=== PATIENT | female | born 1955 | race Caucasian/White ===

== ENCOUNTER 2019-08-05 14:22 | Inpatient (IN) | payer MEDICAID ==
[2019-08-04] MEDS: MAGNESIUM SULFATE/D5W 100 ML IV SCH (21:15)
[~2019-08-05] VITALS: Ht 167.6 cm; Wt 108.9 kg
--- NOTE | 2019-08-05 14:36 | NUR ---
[email or web address] evaluating patient, MSE in progress, pending MD orders
[2019-08-05 14:50] LABS: BASOPHILS # (AUTO) 0.1 K/uL (0.0-8.0); BASOPHILS % (AUTO) 1.1 % (0.0-2.0); EOSINOPHILS # (AUTO) 0.2 K/uL (0.0-0.7); EOSINOPHILS % (AUTO) 3.5 % (0.0-7.0); HEMOGLOBIN 13.7 g/dL (10.9-14.3); LYMPHOCYTES # (AUTO) 2.2 K/uL (20.0-40.0); LYMPHOCYTES % (AUTO) 32.6 % (20.5-51.5); MEAN CORPUSCULAR HEMOGLOBIN 28.5 uug (24.7-32.8); MEAN CORPUSCULAR HGB CONC 33 g/dL (32.3-35.6); MEAN CORPUSCULAR VOLUME 87.4 fL (75.5-95.3); MONOCYTES # (AUTO) 0.4 K/uL (2.0-10.0); MONOCYTES % (AUTO) 5.9 % (0.0-11.0); NEUTROPHILS # (AUTO) 3.8 K/uL (1.8-8.9); NEUTROPHILS % (AUTO) 56.9 % (38.5-71.5); PLATELET COUNT (AUTO) 205 K/uL (179-408); WHITE BLOOD COUNT (AUTO) 6.7 K/uL (3.8-11.8)
[2019-08-05 14:57] LABS: POTASSIUM 3.5 mmol/L (3.5-5.1)
[2019-08-05 15:10] LABS: BILIRUBIN,DIRECT 0.2 mg/dL (0.0-0.2); BILIRUBIN,TOTAL 0.8 mg/dL (0.2-1.0); TOTAL PROTEIN, SERUM 6.8 g/dL (6.4-8.2)
[2019-08-05] MEDS ORDERED: FUROSEMIDE 40 MG/4 ML VIAL IV ONE (16:15)
[2019-08-05] MEDS ORDERED: NITROGLYCERIN OINT 1 GM PACKET TP ONE (16:15)
[2019-08-05] MEDS ORDERED: ENALAPRILAT DIHYDRATE 1.25 MG/1 ML VIAL IV ONE (16:15)
[2019-08-05] MEDS ORDERED: ASPIRIN 325 MG TABLET PO ONE (16:15)
[2019-08-05] MEDS ORDERED: IV NORMAL SALINE 250 ML IV ONE (16:41)
[2019-08-05] MEDS ORDERED: IOHEXOL 350 100 ML INFUS..BTL ONE (16:41)
[2019-08-05] MEDS ORDERED: SWABABLE VALVE TRANSFER SET EA MC ONE (16:41)
--- NOTE | 2019-08-05 16:41 | NUR ---
Patient is resting comfortably on gurney, pending admitting papers from ER registartion staff Damir and Prem. PATIENT IS PAIN FREE AT THIS TIME.
[2019-08-05] MEDS ORDERED: MAGNESIUM HYDROXIDE 30 ML LIQUID UDC PO PRN (18:00)
[2019-08-05] MEDS ORDERED: ACETAMINOPHEN 325 MG TABLET PO PRN (18:00)
[2019-08-05] MEDS ORDERED: TEMAZEPAM 15 MG CAPSULE PO PRN (18:00)
[2019-08-05] MEDS ORDERED: ONDANSETRON 4 MG/2 ML VIAL IV PRN (18:00)
[2019-08-05] MEDS ORDERED: MORPHINE SULFATE 2 MG/1 ML DISP.SYRIN IV PRN (18:00)
[2019-08-05] MEDS ORDERED: hydrALAZINE HCL 25 MG TABLET PO PRN (18:15)
[2019-08-05] MEDS ORDERED: DEXTROSE 50% 50 ML DISP.SYRIN IV PRN (18:15)
[2019-08-05 18:25] VITALS: BP 134/80
--- NOTE | 2019-08-05 18:38 | NUR ---
Discussed importance to patient preventing to drink too much water secondary to pt is being given diuretics. Pt agreeable with plan of care. Call light is within reach.
--- NOTE | 2019-08-05 18:42 | NUR ---
PT has multiple pvcs on tele with SNR. Put pt on o2 at 2 liters. Pt ambulatory with good balance. VSS.
[2019-08-05] MEDS ORDERED: POTASSIUM CHLORIDE 20 MEQ POWDER PACKET PO ONE (19:15)
[2019-08-05 20:00] VITALS: BP 127/81
[2019-08-05] MEDS: MAGNESIUM SULFATE/D5W 100 ML IV SCH ×2 (20:14→21:15)
[2019-08-05] MEDS: CARVEDILOL 6.25 MG TABLET PO SCH (20:15)
[2019-08-05] MEDS: FUROSEMIDE 20 MG/2 ML VIAL IV SCH (20:16)
[2019-08-05] MEDS: LOSARTAN POTASSIUM 50 MG TABLET PO SCH (20:16)
[2019-08-05] MEDS: ATORVASTATIN 40 MG TABLET PO SCH (20:23)
[2019-08-05] MEDS: DOCUSATE SODIUM 100 MG CAPSULE PO SCH (20:23)
[2019-08-05] MEDS: ENOXAPARIN SODIUM 40 MG/0.4 ML DISP.SYRIN SQ SCH (20:27)
[2019-08-06] VITALS: BP 107/59
[2019-08-06 05:00] VITALS: BP 112/64
--- NOTE | 2019-08-06 06:00 | NUR ---
Pt rested well in between care; no acute distress; needs attended;
[2019-08-06 06:10] LABS: BASOPHILS % (AUTO) 0.8 % (0.0-2.0); EOSINOPHILS # (AUTO) 0.3 K/uL (0.0-0.7); EOSINOPHILS % (AUTO) 4.1 % (0.0-7.0); HEMATOCRIT 42.8 % (31.2-41.9); HEMOGLOBIN 13.9 g/dL (10.9-14.3); LYMPHOCYTES # (AUTO) 1.6 K/uL (20.0-40.0); LYMPHOCYTES % (AUTO) 24.2 % (20.5-51.5); MEAN CORPUSCULAR HEMOGLOBIN 28.5 uug (24.7-32.8); MEAN CORPUSCULAR HGB CONC 33 g/dL (32.3-35.6); MEAN CORPUSCULAR VOLUME 87.8 fL (75.5-95.3); MONOCYTES # (AUTO) 0.5 K/uL (2.0-10.0); MONOCYTES % (AUTO) 6.9 % (0.0-11.0); NEUTROPHILS # (AUTO) 4.2 K/uL (1.8-8.9); PLATELET COUNT (AUTO) 209 K/uL (179-408); RED BLOOD CELL COUNT(AUTO) 4.88 MIL/uL (3.63-4.92); WHITE BLOOD COUNT (AUTO) 6.6 K/uL (3.8-11.8)
[2019-08-06 06:22] LABS: BILIRUBIN,TOTAL 1.1 mg/dL (0.2-1.0); MAGNESIUM 2.2 mg/dL (1.8-2.4); PHOSPHOROUS 3.4 mg/dL (2.5-4.9); POTASSIUM 3.4 mmol/L (3.5-5.1); TOTAL PROTEIN, SERUM 6.9 g/dL (6.4-8.2)
[2019-08-06 06:28] LABS: THYROID STIMULATING HORMONE 0.899 mIU/mL (0.358-3.740)
[2019-08-06] MEDS: PANTOPRAZOLE SODIUM 40 MG TABLET.DR PO SCH (06:53)
[2019-08-06] MEDS: BLOOD SUGAR DIAGNOSTIC 1 EACH STRIP VI SCH ×4 (06:54→20:50)
--- NOTE | 2019-08-06 07:30 | NUR ---
Patient received in bed. Patient is AOx4. Patient denies any SOB or respiratory distress. Patient denies pain. Patient has R. AC #22 patent and intact. Safety measures in place. Will continue with the plan of care.
[2019-08-06] MEDS: ASPIRIN 81 MG TAB.CHEW PO SCH (08:49)
[2019-08-06] MEDS: LOSARTAN POTASSIUM 50 MG TABLET PO SCH (08:49)
[2019-08-06] MEDS: FUROSEMIDE 20 MG/2 ML VIAL IV SCH ×2 (08:50→20:44)
[2019-08-06] MEDS: CARVEDILOL 6.25 MG TABLET PO SCH ×2 (08:50→20:44)
[2019-08-06] MEDS: INSULIN REGULAR, HUMAN 300 UNIT/3 ML VIAL SQ PRN ×3 (11:48→20:50)
[2019-08-06 12:00] VITALS: BP 129/70
[2019-08-06] MEDS ORDERED: POTASSIUM CHLORIDE 20 MEQ POWDER PACKET PO ONE ×3 (12:30→15:00)
[2019-08-06] MEDS ORDERED: FUROSEMIDE 20 MG/2 ML VIAL IV ONE (14:15)
--- NOTE | 2019-08-06 18:33 | NUR ---
Patient resting in bed. Patient denies any sob or respiratory distress. Patient denies any pain. Patient complied with fluid restriction. Patient on Lasix, Per patient, she peed 7-9x today and just took 2 glasses of water. Needs are attended. Safety measures in place. Will endorse to the oncoming nurse for the continuity of care.
[2019-08-06 20:00] VITALS: BP 114/78
[2019-08-06] MEDS: ATORVASTATIN 40 MG TABLET PO SCH (20:43)
[2019-08-06] MEDS: DOCUSATE SODIUM 100 MG CAPSULE PO SCH (20:43)
[2019-08-06] MEDS: ENOXAPARIN SODIUM 40 MG/0.4 ML DISP.SYRIN SQ SCH (20:46)
[2019-08-07] VITALS: BP 119/65
[2019-08-07 04:22] LABS: CREATININE 1.1 mg/dL (0.6-1.3); POTASSIUM 3.3 mmol/L (3.5-5.1); TOTAL PROTEIN, SERUM 6.9 g/dL (6.4-8.2)
[2019-08-07 04:51] LABS: BASOPHILS % (AUTO) 0.6 % (0.0-2.0); EOSINOPHILS # (AUTO) 0.3 K/uL (0.0-0.7); HEMATOCRIT 42.5 % (31.2-41.9); HEMOGLOBIN 14.3 g/dL (10.9-14.3); LYMPHOCYTES % (AUTO) 27.7 % (20.5-51.5); MEAN CORPUSCULAR HEMOGLOBIN 29.3 uug (24.7-32.8); MEAN CORPUSCULAR HGB CONC 34 g/dL (32.3-35.6); MONOCYTES # (AUTO) 0.5 K/uL (2.0-10.0); MONOCYTES % (AUTO) 6.3 % (0.0-11.0); NEUTROPHILS # (AUTO) 4.4 K/uL (1.8-8.9); NEUTROPHILS % (AUTO) 61.4 % (38.5-71.5); PLATELET COUNT (AUTO) 223 K/uL (179-408); RED BLOOD CELL COUNT(AUTO) 4.88 MIL/uL (3.63-4.92); WHITE BLOOD COUNT (AUTO) 7.2 K/uL (3.8-11.8)
[2019-08-07 05:00] VITALS: BP 120/60
--- NOTE | 2019-08-07 05:42 | NUR ---
K 3.3, referred to LILIA Monroe; no replacement at this time and ordered repeat K after cardiac CTA
--- NOTE | 2019-08-07 06:39 | NUR ---
pt picked up by ambulance personnel to go to [facility] Cardiac CT angio; will endorse to next nurse to have potassium taken after CTA
[2019-08-07] MEDS: PANTOPRAZOLE SODIUM 40 MG TABLET.DR PO SCH (07:00)
[2019-08-07] MEDS: BLOOD SUGAR DIAGNOSTIC 1 EACH STRIP VI SCH ×4 (07:15→20:53)
[2019-08-07] MEDS: FUROSEMIDE 20 MG/2 ML VIAL IV SCH ×2 (09:29→20:50)
[2019-08-07] MEDS: CARVEDILOL 6.25 MG TABLET PO SCH (09:30)
[2019-08-07] MEDS: ASPIRIN 81 MG TAB.CHEW PO SCH (09:30)
[2019-08-07] MEDS: LOSARTAN POTASSIUM 50 MG TABLET PO SCH (09:31)
--- NOTE | 2019-08-07 10:40 | NUR ---
Patient came back in an ambulance from [place] angio. Patient denies any pain or SOB. Vitals are stable. Will continue with the plan of care.
[2019-08-07] MEDS: POTASSIUM CHLORIDE 20 MEQ POWDER PACKET PO SCH ×3 (10:46→17:32)
[2019-08-07] MEDS: SPIRONOLACTONE 25 MG TABLET PO SCH (10:46)
[2019-08-07 12:00] VITALS: BP 103/63
[2019-08-07] MEDS: INSULIN REGULAR, HUMAN 300 UNIT/3 ML VIAL SQ PRN ×2 (12:05→21:09)
[2019-08-07 17:30] VITALS: BP 127/65
[2019-08-07] MEDS: CARVEDILOL 12.5 MG TABLET PO SCH (18:14)
--- NOTE | 2019-08-07 18:33 | NUR ---
Patient rested well in between care. Patient is awake and alert. Patient denies any SOB or respiratory distress. Patient is on lasix. Per patient, she went to the bathroom to pee 5-6x.. Needs attended. Stable vitals. Safety measures in place. Call lights within reach. Will endorse to the oncoming nurse accordingly.
[2019-08-07] MEDS: DOCUSATE SODIUM 100 MG CAPSULE PO SCH (20:50)
[2019-08-07] MEDS: ATORVASTATIN 40 MG TABLET PO SCH (20:51)
[2019-08-07 20:55] VITALS: BP 130/82
[2019-08-07] MEDS ORDERED: CARVEDILOL 6.25 MG TABLET PO SCH (21:00)
[2019-08-07] MEDS: ENOXAPARIN SODIUM 40 MG/0.4 ML DISP.SYRIN SQ SCH (21:08)
[2019-08-08] VITALS (7 sets, daily range): BP systolic 123–140; BP diastolic 48–79
[2019-08-08] MEDS: PANTOPRAZOLE SODIUM 40 MG TABLET.DR PO SCH (05:56)
[2019-08-08 06:30] LABS: CREATININE 1.1 mg/dL (0.6-1.3); MAGNESIUM 1.7 mg/dL (1.8-2.4); PHOSPHOROUS 4.2 mg/dL (2.5-4.9); POTASSIUM 3.5 mmol/L (3.5-5.1)
[2019-08-08] MEDS: BLOOD SUGAR DIAGNOSTIC 1 EACH STRIP VI SCH ×4 (06:44→20:38)
--- NOTE | 2019-08-08 06:50 | NUR ---
Pt rested well in between care; no acute distress; repositioned for comfort; needs attended; continue to monitor; continue plan of care.
[2019-08-08] MEDS ORDERED: METFORMIN HCL 500 MG TABLET PO SCH (08:00)
[2019-08-08] MEDS ORDERED: hydrALAZINE HCL 25 MG TABLET PO PRN (08:15)
[2019-08-08] MEDS: ASPIRIN 81 MG TAB.CHEW PO SCH (08:28)
[2019-08-08] MEDS: INSULIN REGULAR, HUMAN 300 UNIT/3 ML VIAL SQ PRN ×4 (08:32→20:48)
[2019-08-08] MEDS: CARVEDILOL 12.5 MG TABLET PO SCH ×2 (08:41→18:31)
[2019-08-08] MEDS: SPIRONOLACTONE 25 MG TABLET PO SCH (08:41)
[2019-08-08] MEDS: LOSARTAN POTASSIUM 25 MG TABLET PO SCH (08:41)
[2019-08-08] MEDS ORDERED: LOSARTAN POTASSIUM 50 MG TABLET PO SCH (09:00)
[2019-08-08] MEDS ORDERED: FUROSEMIDE 40 MG/4 ML VIAL IVP SCH ×2 (09:00→21:00)
[2019-08-08] MEDS ORDERED: MAGNESIUM OXIDE 400 MG TABLET PO ONE (11:30)
[2019-08-08] MEDS ORDERED: POTASSIUM CHLORIDE 20 MEQ POWDER PACKET PO ONE (11:45)
[2019-08-08] MEDS: MAGNESIUM SULFATE/D5W 100 ML IV SCH ×2 (12:21→14:21)
--- NOTE | 2019-08-08 17:56 | NUR ---
Pt received this morning, assessed, no acute distress or SOB. Pt denies pain. Compliant with routine medications as ordered. All safety and comfort needs attended to promptly throughout this shift, including repositioning and toileting assist. Pt seen by MD, plan of care discussed, including NPO status starting midnight tonight. Right forearm IV intact & flushed, patent. Call light placed within reach, will continue to monitor.
[2019-08-08] MEDS: DOCUSATE SODIUM 100 MG CAPSULE PO SCH (20:35)
[2019-08-08] MEDS: ATORVASTATIN 40 MG TABLET PO SCH (20:35)
[2019-08-08] MEDS: ENOXAPARIN SODIUM 40 MG/0.4 ML DISP.SYRIN SQ SCH (20:48)
--- NOTE | 2019-08-08 22:47 | NUR ---
Received pt resting in bed. AAO x4. No acute distress noted. Denies pain/ discomfort. Pt to be NPO after midnight. Pt to be picker and packer for appointment at 0400. Due meds given as ordered. Safety measures maintained. Call light and personal belongings within reach. Will continue to monitor.
[2019-08-09] VITALS: BP 130/49
[2019-08-09 04:00] VITALS: BP 130/63
--- NOTE | 2019-08-09 04:33 | NUR ---
Picked up by ambulance to [facility]. Paper works provided. Vital signs stable. Pt kept NPO. Pt left in stable condition.
[2019-08-09] MEDS: PANTOPRAZOLE SODIUM 40 MG TABLET.DR PO SCH (06:16)
[2019-08-09] MEDS: BLOOD SUGAR DIAGNOSTIC 1 EACH STRIP VI SCH ×3 (06:37→16:30)
[2019-08-09] MEDS: CARVEDILOL 12.5 MG TABLET PO SCH ×2 (08:00→17:29)
[2019-08-09] MEDS: ASPIRIN 81 MG TAB.CHEW PO SCH (09:00)
[2019-08-09] MEDS: LOSARTAN POTASSIUM 25 MG TABLET PO SCH (09:00)
[2019-08-09] MEDS: SPIRONOLACTONE 25 MG TABLET PO SCH (09:00)
[2019-08-09] MEDS ORDERED: FUROSEMIDE 40 MG TABLET PO SCH (12:45)
[2019-08-09] MEDS ORDERED: ATOR40TA PO (13:02)
[2019-08-09] MEDS ORDERED: CARV12.52 PO (13:02)
[2019-08-09] MEDS ORDERED: LOSA25TA3 PO (13:02)
[2019-08-09] MEDS ORDERED: ASPI81TA31 PO (13:02)
[2019-08-09] MEDS ORDERED: SPIR25TA PO (13:02)
[2019-08-09] MEDS ORDERED: FURO40TA5 PO (13:02)
--- NOTE | 2019-08-09 15:50 | NUR ---
pt is in [facility] for heart cath
[2019-08-09 20:14] VITALS: BP 147/65
[2019-08-09 20:59] VITALS: BP 143/91
--- NOTE | 2019-08-09 21:32 | NUR ---
Pt arrived in the unit at 2054 from [facility]. Vital signs stable. Pt in good spirit and excited to go home. Discharge papers provided. Teaching provided. IV taken out. Pt to be discharge home. Pt belongings given and paper works signed. Wheeled out pt downstairs and was picked up by her via car at 2129.
== END 2019-08-09 21:59 | disposition home or self-care (01) | DRG 199 ==
LOC: ER 14:22 → TELE3 17:08
PROVIDERS: ADMIT Internal Medicine
DX: I16.1 Hypertensive emergency (principal); I50.21 Acute systolic (congestive) heart failure; J90 Pleural effusion, not elsewhere classified; D68.69 Other thrombophilia; I11.0 Hypertensive heart disease with heart failure; E66.01 Morbid (severe) obesity due to excess calories; I42.8 Other cardiomyopathies; I49.3 Ventricular premature depolarization; F17.210 Nicotine dependence, cigarettes, uncomplicated; I25.10 Atherosclerotic heart disease of native coronary artery without angina pectoris; Z68.38 Body mass index [BMI] 38.0-38.9, adult; E11.9 Type 2 diabetes mellitus without complications
CPT/HCPCS: 36415; 70030-TC; 71045; 71275; 83735; 84100; 84132; 84443; 85025; 85730; 93005; 93307; A4663; G0378; J1650; J1815; J1940; J3475; J7050; Q9967